=== PATIENT | male | born 1935 | race Two or more races ===

== ENCOUNTER → 2020-01-03 | Outpatient (CLI) | payer MEDICARE ==
--- NOTE | 2020-01-03 16:10 | XR ---
EXAMINATION TYPE: XR hand complete RT DATE OF EXAM: 01/03/2020 CLINICAL HISTORY: Blister on right first digit. Limited movement of third through fifth digits. No tr auma. TECHNIQUE: Frontal, lateral and oblique images of the right hand are obtained. COMPARISON: None. FINDINGS: There is swelling of the second digit distally with overlying bandage material. There is a lso swelling of the third and fourth digits at the level of the proximal phalanges There is no acute fracture/dislocation evident in the right hand. There is joint space narrowing at the radiocarpal prasad nt and third digit metacarpal phalangeal joint. There is subchondral cystic changes of the carpal bon es, distal ulna and radius, and several of the metacarpophalangeal and interphalangeal joints. Scatte red areas of degenerative spurring of the interphalangeal joints. No osseous erosions. No subluxation . IMPRESSION: 1. There is no acute fracture or dislocation in the right hand. 2. Soft tissue swelling of the second through third digits. 3. Osteoarthritic changes as above.
== END | disposition home or self-care (01) ==
LOC: RADXRMAIN 15:34
PROVIDERS: ATTEND Nurse Practitioner Family
DX: M19.041 Primary osteoarthritis, right hand (principal); M79.89 Other specified soft tissue disorders; L98.492 Non-pressure chronic ulcer of skin of other sites with fat layer exposed